=== PATIENT | female | born 1995 | race Two or more races ===

== ENCOUNTER 2022-11-04 04:49 | Inpatient (IN) | payer MEDICAID, OTHER ==
[~2022-11-04] VITALS: Ht 172.7 cm; Wt 60.8 kg
[2022-11-04] MEDS: PRENATAL VIT/FE FUMARATE/FA TABLET PO SCH ×2 (05:00→12:45)
[2022-11-04] MEDS ORDERED: RHO(D) IMMUNE GLOBULIN 300 MCG/SYR IM PRN ×2 (05:00→05:30)
[2022-11-04] MEDS ORDERED: LACTATED RINGERS 1,000 ML IV PRN (05:00)
[2022-11-04] MEDS ORDERED: IBUPROFEN 400MG TABLET PO PRN (05:30)
[2022-11-04] MEDS ORDERED: LANOLIN OINT 7GM TUBE TOP PRN (05:30)
[2022-11-04] MEDS ORDERED: IBUPROFEN 800MG TABLET PO PRN (05:30)
[2022-11-04] MEDS ORDERED: METHYLERGONOVINE MALEATE 0.2 MG/ML IM PRN (05:30)
[2022-11-04] MEDS ORDERED: OXYTOCIN 30 UNITS/500ML NS PMX 500 ML IV SCH (05:30)
[2022-11-04 05:52] LABS: BASOPHILS % 0.4 % (0.0-2.0); EOSINOPHILS % 0.5 % (0.0-5.0); HEMATOCRIT. 34.9 % (36.0-48.0); HEMOGLOBIN. 11.9 g/dL (12.0-16.0); LYMPHOCYTES % 12.4 % (20.0-50.0); MEAN CORPUSCULAR HGB CONC 34.2 g/dL (31.0-37.0); MEAN CORPUSCULAR VOLUME 93.6 fL (81.0-99.0); MEAN PLATELET VOLUME 9.9 fl (7.4-10.4); MONOCYTES % 6.4 % (2.0-8.0); NEUTROPHILS % 80.3 % (40.0-76.0); PLATELET 185 x1000/uL (130-400); RED BLOOD CELL COUNT 3.73 mill/uL (4.2-5.4); RED CELL DISTRIBUTION WIDTH 12.8 % (11.6-14.6)
[2022-11-04] MEDS: OXYTOCIN 30 UNITS/500ML NS PMX 500 ML IV SCH ×2 (06:00→07:25)
[2022-11-04 06:04] LABS: INR 0.9; PARTIAL THROMBOPLASTIN TIME 25.2 sec (23.4-31.0); PROTHROMBIN TIME 9.7 sec (9.6-11.0)
[2022-11-04] MEDS ORDERED: PREN-176 PO (07:01)
[2022-11-04 07:50] LABS: RAPID HIV SCREEN NEGATIVE (NEGATIVE)
[2022-11-04 08:00] VITALS: BP 107/59; PULSE 62; RESP 20; TEMP 98.2; O2SAT 99
[2022-11-04 08:30] VITALS: BP_SYST 107; BP_SYST 110; BP_DIAS 59; BP_DIAS 63; PULSE 62; RESP 18; RESP 20; TEMP 98.1
[2022-11-04 12:00] LABS: *AMPHETAMINES SCREEN URINE NEGATIVE (NEGATIVE); *BARBITURATES SCREEN URINE NEGATIVE (NEGATIVE); *BENZODIAZEPINES SCREEN URINE NEGATIVE (NEGATIVE); *COCAINE SCREEN URINE NEGATIVE (NEGATIVE); CANNABINOID URINE SCREEN NEGATIVE (NEGATIVE); ECSTASY MDMA SCREEN URINE NEGATIVE (NEGATIVE); METHADONE URINE SCREEN NEGATIVE (NEGATIVE); OPIATES URINE SCREEN NEGATIVE (NEGATIVE); PHENCYCLIDINE URINE SCREEN NEGATIVE (NEGATIVE)
[2022-11-04 16:00] VITALS: BP 98/56; RESP 18; TEMP 98.1
[2022-11-04 20:00] VITALS: BP 99/59; PULSE 58; RESP 18; TEMP 98.2; O2SAT 98
[2022-11-04] MEDS ORDERED: DOCUSATE SODIUM 100MG CAPSULE PO SCH (21:00)
[2022-11-05 04:00] VITALS: BP 102/62; PULSE 59; RESP 18; TEMP 98
[2022-11-05 07:02] LABS: BASOPHILS % 0.4 % (0.0-2.0); EOSINOPHILS % 1.3 % (0.0-5.0); HEMATOCRIT. 28.4 % (36.0-48.0); HEMOGLOBIN. 9.9 g/dL (12.0-16.0); LYMPHOCYTES % 21.5 % (20.0-50.0); MEAN CORPUSCULAR HEMOGLOBIN 32.6 pg (28.0-32.0); MEAN CORPUSCULAR HGB CONC 34.7 g/dL (31.0-37.0); MEAN CORPUSCULAR VOLUME 93.9 fL (81.0-99.0); MEAN PLATELET VOLUME 9.9 fl (7.4-10.4); NEUTROPHILS % 69.8 % (40.0-76.0); PLATELET 153 x1000/uL (130-400); RED BLOOD CELL COUNT 3.02 mill/uL (4.2-5.4); RED CELL DISTRIBUTION WIDTH 12.7 % (11.6-14.6); WHITE BLOOD COUNT 13.4 x1000/uL (4.5-11.0)
[2022-11-05 07:45] VITALS: BP 105/41; PULSE 57; RESP 18; TEMP 98; O2SAT 99
[2022-11-05] MEDS: PRENATAL VIT/FE FUMARATE/FA TABLET PO SCH (08:35)
== END 2022-11-05 16:10 | disposition home or self-care (01) | DRG 560 ==
LOC: 8 EST LDRP 04:49 → OBSVTOIN 04:49 → 8EST 09:16
PROVIDERS: ADMIT Obstetrics & Gynecology; ATTEND Obstetrics & Gynecology
PROC: 10E0XZZ Delivery of Products of Conception, External Approach (ICD-10-PCS; principal; 2022-11-04)
DX: O72.0 Third-stage hemorrhage (principal); Z37.0 Single live birth; D62 Acute posthemorrhagic anemia; O99.02 Anemia complicating childbirth; Z3A.39 39 weeks gestation of pregnancy
CPT/HCPCS: 36415; 80305; 85025; 86592; 86703; 86762; 86850; 86900; 87340; J2210; J2590